=== PATIENT | female | born 1945 | race Caucasian/White ===

== ENCOUNTER 2017-01-31 08:14 | Day surgery (SDC) | payer MEDICARE ==
[~2017-01-31 08:14] MED LIST: Z.0.NO CURRENT MEDS
[2017-01-31 09:00] LABS: APTT (PATIENT) 30.1 SEC (24.3-30.1); INTERNATIONAL NORMALIZED RATIO 1.1 RATIO; PROTHROMBIN TIME - PATIENT 11.2 SEC (9.8-11.6)
[2017-01-31 09:42] VITALS: BP 135/88; PULSE 130; RESP 16; TEMP 98; O2SAT 96
[2017-01-31] MEDS ORDERED: LIDOCAINE HCL 1% 20 ML VIAL ONE (10:40)
[2017-01-31 10:45] VITALS: BP 131/85; PULSE 124; RESP 20; TEMP 98.7; O2SAT 94
[2017-01-31 11:00] VITALS: BP 118/77; PULSE 118; RESP 20; O2SAT 94
--- NOTE | 2017-01-31 11:09 | RADRPT ---
EXAM DATE/TIME: 01/31/2017 09:16 [facility] COMPARISON: No previous studies available for comparison. INDICATIONS : Right pleural effusion. MEDICAL HISTORY : Carcinoma, lung. Osteoporosis. Chemotherapy. Aneima. Compression fractures T7 and T12. SURGICAL HISTORY : Kyphoplasty. ENCOUNTER: Initial ACUITY: 1 day PAIN SCORE: 2/10 LOCATION: Right chest FLUID: Total volume of 900 cc of cloudy, red fluid was removed. Fluid was discarded. Thoracentesis was therapeutic only. TECHNIQUE: 1. Ultrasound guidance for thoracentesis. 2. Thoracentesis. The risks, benefits, and alternatives to ultrasound guided thoracentesis were explained to the patien t in lay simple terms, including the risk of bleeding and infection. Written and verbal informed con sent was obtained. Appropriate area for thoracentesis was marked under ultrasound guidance with the patient in the uprig ht position. Overlying skin was prepped and draped in the usual sterile fashion and with local anest hetic, a dermatotomy was made with an 11 blade scalpel. A 6 [place] thoracentesis catheter was placed in the pleural space and fluid was removed. Catheter was then removed and a sterile dressing applie d. There were no immediate complications. The patient tolerated the procedure well and the left the ultrasound suite in stable condition. Chest radiograph is to be obtained. CONCLUSION: Uncomplicated ultrasound guided thoracentesis. Umer Zhao MD on January 31, 2017 at 11:07 Board Certified Radiologist. This report was verified electronically.
--- NOTE | 2017-01-31 11:18 | RADRPT ---
EXAM DATE/TIME: 01/31/2017 10:37 [facility] COMPARISON: No previous studies available for comparison. INDICATIONS : Status post thoracentesis. MEDICAL HISTORY : None. SURGICAL HISTORY : None. ENCOUNTER: Initial ACUITY: 1 day PAIN SCORE: 5/10 LOCATION: Bilateral chest FINDINGS: The cardiac silhouette is enlarged in transverse diameter. A permacath is in place via right internal jugular approach with its tip in the superior vena cava. There is right lower lobe atelectasis versu s pneumonia. A moderate size right sided effusion is present. The left lung is free of acute parenchy mal opacity. CONCLUSION: 1. No evidence of pneumothorax following thoracentesis. Justin Mae MD on January 31, 2017 at 11:16 Board Certified Radiologist. This report was verified electronically.
== END 2017-01-31 11:35 | disposition home or self-care (01) ==
LOC: HRAD 08:14 → HRIP 08:19 → HRAD 11:35
PROVIDERS: ATTEND Internal Medicine Hematology
DX: J90 Pleural effusion, not elsewhere classified (principal); C34.31 Malignant neoplasm of lower lobe, right bronchus or lung; M81.0 Age-related osteoporosis without current pathological fracture; D64.81 Anemia due to antineoplastic chemotherapy; D70.1 Agranulocytosis secondary to cancer chemotherapy; Z01.818 Encounter for other preprocedural examination
CPT/HCPCS: 32555; 36415; 71010; 85610; 85730; C1729